=== PATIENT | male | born 1975 | race Two or more races ===

== ENCOUNTER 2016-09-04 19:52 | Emergency (ER) | payer SELFPAY ==
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
[2016-09-04] MEDS ORDERED: NO MEDICATIONS (20:14)
[2016-09-04 21:10] LABS: BASOPHIL# 0.1 X10e3 (0-0.3); BASOPHIL% 0.3 % (0-2.5); EOSINOPHIL# 0.4 X10e3 (0-0.7); EOSINOPHIL% 2.6 % (0.0-7.0); HEMATOCRIT 40.4 % (38.0-50.0); HEMOGLOBIN 13.9 gm/dL (13.0-16.0); LYMPHOCYTE# 1.9 X10e3 (1.0-3.5); LYMPHOCYTE% 12.1 % (17.0-45.0); MEAN CELL VOLUME 84.3 FL (83-96); MEAN CORPUSCULAR HGB CONC 34.4 g/dL (30-36); MEAN PLATELET VOLUME 9.5 FL (6.5-11.5); MONOCYTE# 1.1 X10e3 (0-1.0); MONOCYTE% 6.9 % (3.0-12.0); NEUTROPHIL# 12.6 X10e3 (1.5-7.1); NEUTROPHIL% 78.1 % (40-75); PLATELET COUNT 201 X10e3 (140-420); RED BLOOD COUNT 4.79 X10e (3.90-5.60); RED CELL DISTRIBUTION WIDTH 13.3 % (11.0-15.5); WHITE BLOOD COUNT 16.1 X10e3 (4.0-10.5)
[2016-09-04 21:14] LABS: DIFF IND NO
[2016-09-04 21:36] LABS: ALBUMIN SERUM 4.4 g/dL (3.5-5.0); ALKALINE PHOSPHATASE 32 U/L (32-92); ALT (SGPT) 28 U/L (10-40); AMYLASE 19 U/L (0-46); AST (SGOT) 26 U/L (10-42); BILIRUBIN, DIRECT <0.1 mg/dL (0.0-0.2); BILIRUBIN,INDIRECT 0.5 mg/dL (0.0-0.9); BILIRUBIN,TOTAL 0.6 mg/dL (0.2-2.0); LIPASE 34 U/L (22-51); PROTEIN TOTAL SERUM 7.3 g/dL (6.0-8.3)
[2016-09-04 21:56] LABS: BUN/CREATININE RATIO 17.5; CALCIUM SERUM 9.7 mg/dL (8.4-10.2); CREATININE SERUM 0.8 mg/dL (0.6-1.4); POTASSIUM 3.7 mmol/L (3.5-5.1)
== END 2016-09-05 03:23 | disposition home or self-care (01) ==
LOC: SED 19:52
PROVIDERS: Nurse Practitioner Family
DX: S00.93XA Contusion of unspecified part of head, initial encounter (principal); S30.1XXA Contusion of abdominal wall, initial encounter; Y04.0XXA Assault by unarmed brawl or fight, initial encounter; Y92.009 Unspecified place in unspecified non-institutional (private) residence as the place of occurrence of the external cause
CPT/HCPCS: 36415; 70450; 70486; 71020; 72040; 73030; 74177; 80048; 80076; 82150; 83690; 85025; 96360; 99284; G0480; Q9967